=== PATIENT | female | born 1965 | race Hispanic/Latino ===

== ENCOUNTER → 2017-07-22 | Day surgery (SDC) | payer OTHER ==
[~2017-07-22] VITALS: Ht 162.6 cm; Wt 72.6 kg
[~2017-07-22] MED LIST: AMLODIPINE BES2.5 M1 PO; FOLIC ACID1 M1 PO; HYDROXYCHLOROQ200 M2 PO; LYRICA150 M1 PO; NEXIUM40 M1 PO; OMEPRAZOLE40 M1 PO; PERCOCET 5-3251 EACH PO; TEMAZEPAM30 M1 PO; VITAMIN D31000 UNI1 PO; ZOFRAN ODT4 M1 SL
--- NOTE | 2017-07-22 08:16 | Operative Report ---
Operative/Inv Procedure Report Surgery Date: 07/22/17 Name of Procedure: RIGHT ESWL Pre-Operative Diagnosis: RIGHT 5MM LOWER POLE STONE Post-Operative Diagnosis: same Estimated Blood Loss: scant Surgeon/Utilization Management Manager: Emmie Knowles MD Anesthesia: local monitored anesthesi Complications: none Condition: stable Operative Indication: right renal colic Operative/Procedure Note Note: 52yo female with a hx of kidney stone on the right side causing renal colic. She admits to not drinking much fluids. She was given the risks, benefits and alternatives of the procedure. She signed the consent form and all questions were answered. Patient was taken to the operating room and placed in the supine position. Time out was performed. She was optimally positioned for ESWL. The stone was easily identified in the right lower pole. Shockwave was begun after IV sedaton was optimal. She had 1-100 shocks at a range of 1-10 power, then 101-250 whocks at 11-15 power, then 251-350 shocks at 16-18 power, and finally 351-2500 shocks at 18 power. She tolerated the procedure well. The stone was pulverized to dust essentially. It was drastically changed after the ESWL. She was transferred to the recovery room in stable condition. Findings: right 5mm lower pole stone well fragmented with 2500 shocks Discharge Disposition: Same Day Admissions
== END ==
LOC: STS 01:15
DX: N20.0 Calculus of kidney (principal); M32.9 Systemic lupus erythematosus, unspecified; I10 Essential (primary) hypertension; F17.200 Nicotine dependence, unspecified, uncomplicated; F10.10 Alcohol abuse, uncomplicated
CPT/HCPCS: J0690; J2250